=== PATIENT | female | born 1955 | race Caucasian/White ===

== ENCOUNTER 2020-04-02 21:19 | Inpatient (IN) | payer OTHER ==
[2020-04-02] MEDS ORDERED: NA CHLORIDE 0.9% 3,000 ML ONE (22:03)
[2020-04-02 22:14] LABS: Absolute Lymphocytes (CBC) 1.3 K/uL (0.7-4.9); Basophils % 0.3 % (0-1.3); Hematocrit 43.5 % (36.0-45.0); Lymphocytes % 7.6 % (15.3-44.8); MPV 11.1 fL (7.6-11.3); RBC Red Blood Cell Count 4.65 M/uL (3.86-4.86)
[2020-04-02 22:22] LABS: Protime INR 1.13
[2020-04-02 22:51] LABS: Blood Morphology Comment NOT SEEN (NOT SEEN); Platelet Estimate ADEQ
[2020-04-02] MEDS ORDERED: ACETAMINOPHEN 500 MG TAB ONE (22:57)
[2020-04-02 23:23] LABS: ALT/SGPT 31 U/L (12-78); AST/SGOT 24 U/L (15-37); Albumin 3.9 g/dL (3.4-5.0); Alkaline Phosphatase 72 U/L (45-117); BUN Blood Urea Nitrogen 16 mg/dL (7-18); Bicarbonate 25 mmol/L (21-32); Bilirubin Direct 0.2 mg/dL (0-0.2); Bilirubin Total 0.6 mg/dL (0.2-1.0); CKMB Creatine Kinase MB < 1.0 ng/mL (0.3-3.6); Creatine Phosphokinase 169 U/L (26-192); Glucose Level 152 mg/dL (74-106); Lipase 151 U/L (73-393); Potassium 4.4 mmol/L (3.5-5.1); Protein, Total 8.2 g/dL (6.4-8.2); Sodium Level 139 mmol/L (136-145); Troponin (Emerg Dept Use Only) < 0.02 ng/mL (0.0-0.045)
[2020-04-02] MEDS ORDERED: ASPIRIN 81 MG CHEWABLE TABLET ONE (23:23)
[2020-04-02] MEDS ORDERED: Levofloxacin500mg IV 500 MG/100 ML BAG IV ONE (23:23)
--- NOTE | 2020-04-02 23:28 | ER ---
Nurse's Notes [facility] Name: Sunni Salazar Age: 64 yrs Sex: Female : 1955 Arrival Date: 04/02/2020 Time: 21:27 Bed 17 Private MD: Diagnosis: Chronic obstructive pulmonary disease with acute lower respiratory infection;Other sepsis;Cellulitis of right lower limb Presentation: 04/02 21:38 Chief complaint: Patient states: "I have been worsening shortness of breath and fever jd3 that started at 1500 this afternoon. I do have COPD, but the fever was what was concerning me.". Coronavirus screen: difficulty breathing, fever, headache, shortness of breath, Client presents with at least one sign or symptom that may indicate coronavirus-19. Standard/surgical mask placed on the client. Provider contacted for isolation considerations. Ebola Screen: Patient negative for fever greater than or equal to 101.5 degrees Fahrenheit, and additional compatible Ebola Virus Disease symptoms. Initial Sepsis Screen: Does the patient meet any 2 criteria? RR > 20 per min. HR > 90 bpm. Yes Does the patient have a suspected source of infection? Yes: Productive cough/pneumonia If YES to both, name of provider notified: Chris WEBSTER Risk Assessment: Do you want to hurt yourself or someone else? Patient reports no desire to harm self or others. Onset of symptoms was April 02, 2020. 21:38 Method Of Arrival: Wheelchair jd3 21:38 Acuity: ANTELMO 2 jd3 Historical: - Allergies: 21:42 No Known Allergies; jd3 - Home Meds: 21:42 Lisinopril Oral [Active]; cholesterol med [Active]; jd3 - PMHx: 21:42 COPD; Hypertension; High Cholesterol; jd3 - PSHx: 21:42 neck; jd3 - Immunization history:: Adult Immunizations up to date. - Social history:: Smoking status: Patient reports the use of cigarette tobacco products, smokes 0.75 packs per day. Screenin:21 Abuse screen: Denies threats or abuse. Denies injuries from another. Nutritional rv screening: No deficits noted. Tuberculosis screening: No symptoms or risk factors identified. Fall Risk None identified. Assessment: 22:18 General: Appears uncomfortable, Behavior is calm, cooperative. Pain: Complains of pain rv in chest. Neuro: Level of Consciousness is awake, alert, obeys commands, Oriented to person, place, time, situation. Cardiovascular: Patient's skin is warm and dry. Rhythm is sinus tachycardia. Respiratory: Respiratory effort is labored, Respiratory pattern is tachypnea Breath sounds with wheezes bilaterally. EENT: No signs and/or symptoms were reported regarding the EENT system. 23:26 Reassessment: pt is A\\T\\O x 3, resp labored, bilateral breath sounds diminished with bb wheezes throughout right lung, notified Chris Page PA new orders received for Bipap respiratory notified. 04/03 01:01 Reassessment: patient feels more comfortable now. heart rate is decreased. still with rv wheezing both lung vences. Neuro: Level of Consciousness is awake, alert, obeys commands, Oriented to person, place, time, situation. Respiratory: Patient placed on BiPAP: FiO2%: 30 Breath sounds with wheezes bilaterally. 01:16 Reassessment: RODNEY, PATIENT'S SON, UPDATED VIA PHONE CALL. LEFT CONTACT NUMBER, [phone]. Vital Signs: 04/02 21:40 BP 167 / 69; Pulse 140; Resp 29 S; Temp 99.0(O); Pulse Ox 92% on R/A; Weight 90.72 kg jd3 (R); Height 5 ft. 5 in. (165.10 cm) (R); Pain 7/10; 22:21 BP 138 / 72; Pulse 112; Resp 26; Pulse Ox 94% on R/A; rv 22:48 BP 114 / 99; Pulse 115; Resp 24; Temp 100.8(O); Pulse Ox 93% on R/A; rv 22:48 Pulse Ox 99% on 2 lpm NC; rv 23:27 BP 116 / 81; Pulse 126; Resp 28; Pulse Ox 97% on 2 lpm NC; bb 23:32 Temp 100.5(O); bb 04/03 00:00 BP 112 / 64; Pulse 108; Resp 24; Pulse Ox 97% on 30% BiPAP; rv 01:05 BP 128 / 77; Pulse 108; Resp 25; Pulse Ox 97% on 30% BiPAP; rv 04/02 21:40 Body Mass Index 33.28 (90.72 kg, 165.10 cm) jd3 ED Course: 04/02 21:27 Patient arrived in ED. bp1 21:37 Chris Ojeda PA is PHCP. cp 21:37 Meño Ibarra MD is Attending Physician. cp 21:40 Triage completed. jd3 21:41 Arm band placed on. jd3 21:47 No provider procedures requiring assistance completed. Initial lab(s) drawn, by me, rv sent to lab. First set of blood cultures drawn by me. 21:56 Edwin Dumont, RN is Primary Nurse. rv 21:57 Inserted saline lock: 18 gauge in left antecubital area, using aseptic technique. Blood rv collected. 22:00 Second set of blood cultures drawn by me. rv 22:22 Patient has correct armband on for positive identification. Placed in gown. Bed in low rv position. Call light in reach. Side rails up X 1. Pulse ox on. NIBP on. 22:44 Chest Single View XRAY In Process Unspecified. EDMS 22:45 US Extremity Venous Unilateral Ltd In Process Unspecified. EDMS 23:26 Rick Stacy is Hospitalizing Provider. cp 04/03 00:21 CT Chest For PE Angio In Process Unspecified. EDMS 01:25 IV is patent, with fluids infusing freely, with good blood return, Patient admitted, IV rv remains in place. Administered Medications: 04/02 22:18 Drug: NS 0.9% (30 ml/kg) 30 ml/kg Route: IV; Rate: bolus; Site: left antecubital; rv 04/03 01:06 Follow up: IV Status: Completed infusion; IV Intake: 2000ml rv 04/02 22:48 Drug: Tylenol 1000 mg Route: PO; rv 04/03 01:05 Follow up: Response: Temperature is decreased rv 04/02 23:22 Drug: LevaQUIN 500 mg Volume: 100 ml; Route: IVPB; Infused Over: 60 mins; Site: left bb antecubital; 04/03 01:06 Follow up: IV Status: Completed infusion rv 04/02 23:22 Drug: Aspirin Chewable Tablet 324 mg Route: PO; bb 04/03 01:06 Follow up: Response: No adverse reaction rv 00:19 Drug: SOLU-Medrol 125 mg Route: IVP; Site: left antecubital; rv 01:06 Follow up: Response: No adverse reaction rv 01:23 Drug: vancoMYCIN 1 grams Route: IVPB; Infused Over: 2 hrs; Site: left antecubital; rv 01:25 Follow up: IV Status: Infusion continued upon admission rv Intake: 01:06 IV: 2000ml; Total: 2000ml. rv Outcome: 04/02 23:28 Decision to Hospitalize by Provider. cp 04/03 01:25 Admitted to ER Hold. Please see [facility] for further documentation. rv Condition: good Instructed on the need for admit. 11:43 Patient left the ED. jl7 Signatures: Dispatcher [employer] EDKalani Boykin RN RN Chris Mcbride PA PA cp Leal, Jahala, RN RN jl7 Levon Woods RN RN jEdwin Ruiz RN RN rv Liana Elliott
--- NOTE | 2020-04-02 23:28 | EDPHYS ---
Physician Documentation [facility] Name: Sunni Salazar Age: 64 yrs Sex: Female : 1955 Arrival Date: 04/02/2020 Time: 21:27 Bed 17 Private MD: ED Physician Meño Ibarra HPI: 04/02 22:15 This 64 yrs old Female presents to ER via Wheelchair with complaints of Fever. cp 22:15 The patient reports fever, that was measured at 104 degrees Fahrenheit. Onset: The cp symptoms/episode began/occurred today. Associated signs and symptoms: Pertinent positives: shortness of breath. Historical: - Allergies: 21:42 No Known Allergies; jd3 - Home Meds: 21:42 Lisinopril Oral [Active]; cholesterol med [Active]; jd3 - PMHx: 21:42 COPD; Hypertension; High Cholesterol; jd3 - PSHx: 21:42 neck; jd3 - Immunization history:: Adult Immunizations up to date. - Social history:: Smoking status: Patient reports the use of cigarette tobacco products, smokes 0.75 packs per day. ROS: 22:20 Constitutional: Positive for fever, Negative for poor PO intake. cp 22:20 Neck: Negative for pain with movement, pain at rest, stiffness. cp 22:20 Cardiovascular: Negative for chest pain. 22:20 Respiratory: Positive for cough, shortness of breath. 22:20 Abdomen/GI: Negative for abdominal pain, vomiting, diarrhea, constipation. 22:20 Neuro: Negative for altered mental status, headache, weakness. 22:20 All other systems are negative. Exam: 22:00 ECG was reviewed by the Attending Physician. cp 22:25 Constitutional: The patient appears in no acute distress, alert, awake, cp non-diaphoretic, well developed, well nourished, obviously ill. 22:25 Head/Face: Normocephalic, atraumatic. cp 22:25 Eyes: Periorbital structures: appear normal, Conjunctiva: normal, no exudate, no injection, Sclera: no appreciated abnormality, Lids and lashes: appear normal, bilaterally. 22:25 ENT: External ear(s): are unremarkable, Nose: is normal, Mouth: is normal, Posterior pharynx: Airway: no evidence of obstruction, patent. 22:25 Neck: ROM/movement: is normal, is supple, no meningismus, no nuchal rigidity. 22:25 Chest/axilla: Inspection: normal, Palpation: is normal, no crepitus, no tenderness. 22:25 Cardiovascular: Rate: tachycardic, Rhythm: regular, JVD: is not appreciated. 22:25 Respiratory: mild respiratory distress is noted, Respirations: labored breathing, that is mild, tachypnea, that is mild, Breath sounds: bronchial sounds, that are mild, are heard diffusely, stridor, is not appreciated. 22:25 Abdomen/GI: Inspection: abdomen appears normal, Palpation: abdomen is soft and non-tender, in all quadrants. 22:25 Musculoskeletal/extremity: Extremities: grossly normal except: noted in the right leg: erythema, swelling, tenderness, Pulses: noted to be 2+ in the right dorsalis pedis artery and left dorsalis pedis artery. 22:25 Neuro: Orientation: to person, place \T\ time. Mentation: is normal. cp Vital Signs: 21:40 BP 167 / 69; Pulse 140; Resp 29 S; Temp 99.0(O); Pulse Ox 92% on R/A; Weight 90.72 kg jd3 (R); Height 5 ft. 5 in. (165.10 cm) (R); Pain 7/10; 22:21 BP 138 / 72; Pulse 112; Resp 26; Pulse Ox 94% on R/A; rv 22:48 BP 114 / 99; Pulse 115; Resp 24; Temp 100.8(O); Pulse Ox 93% on R/A; rv 22:48 Pulse Ox 99% on 2 lpm NC; rv 23:27 BP 116 / 81; Pulse 126; Resp 28; Pulse Ox 97% on 2 lpm NC; bb 23:32 Temp 100.5(O); bb 04/03 00:00 BP 112 / 64; Pulse 108; Resp 24; Pulse Ox 97% on 30% BiPAP; rv 01:05 BP 128 / 77; Pulse 108; Resp 25; Pulse Ox 97% on 30% BiPAP; rv 04/02 21:40 Body Mass Index 33.28 (90.72 kg, 165.10 cm) jd3 MDM: 04/02 21:55 Patient medically screened. cp 22:00 Differential diagnosis: viral Infection, bacterial infection, bronchitis, pneumonia cp UTI, meningitis. 23:20 Test interpretation: by ED physician or midlevel provider: chest xray negative for cp focal pneumonia. 23:30 Data reviewed: vital signs, nurses notes, lab test result(s), EKG, radiologic studies, cp plain films, ultrasound. 23:30 Test interpretation: by ED physician or midlevel provider: ECG, plain radiologic cp studies. Physician consultation: Eugenio GARCIA was contacted at 23:25, regarding admission, to the telemetry unit. patient's condition, and will see patient in ED, shortly. 04/02 21:57 Order name: BMP; Complete Time: 23:41 rv 04/02 21:57 Order name: C-Reactive Protein; Complete Time: 23:41 rv 04/02 21:57 Order name: CBC with Diff; Complete Time: 22:53 rv 04/02 22:53 Interpretation: Normal except: WBC 17.2; PLT 112; GEETA% 86.9; LYM% 7.6; NEUT A 15.0. 04/02 21:57 Order name: D-Dimer; Complete Time: 22:53 rv 04/02 22:55 Interpretation: Abnormal: D-DIMER 1262. 04/02 21:57 Order name: Ferritin; Complete Time: 23:41 rv 04/02 21:57 Order name: Flu; Complete Time: 22:53 rv 04/02 21:57 Order name: Lactate; Complete Time: 22:53 rv 04/02 21:57 Order name: LFT's; Complete Time: 23:41 rv 04/02 21:57 Order name: Lipase; Complete Time: 23:41 rv 04/02 21:57 Order name: Procalcitonin; Complete Time: 23:41 rv 04/02 21:57 Order name: PT-INR; Complete Time: 22:53 rv 04/02 21:57 Order name: Ptt, Activated; Complete Time: 22:53 rv 04/02 21:57 Order name: Strep rv 04/02 21:57 Order name: Troponin (emerg Dept Use Only); Complete Time: 23:41 rv 04/02 21:57 Order name: Urine Microscopic Only 04/02 21:57 Order name: Urine Culture 04/02 21:57 Order name: D-Dimer 04/02 21:57 Order name: Basic Metabolic Panel 04/02 21:57 Order name: Blood Culture Adult (2) cp 04/02 21:57 Order name: Ckmb; Complete Time: 23:41 cp 04/02 21:57 Order name: CPK; Complete Time: 23:41 04/02 21:57 Order name: EKG; Complete Time: 21:58 rv 04/02 21:57 Order name: Cardiac monitoring; Complete Time: 21:59 rv 04/02 21:57 Order name: Document PUI#; Complete Time: 22:23 rv 04/02 21:57 Order name: Droplet/Contact Precautions; Complete Time: 21:57 rv 04/02 21:57 Order name: EKG - Nurse/Tech; Complete Time: 21:57 rv 04/02 21:57 Order name: IV Start; Complete Time: 21:59 rv 04/02 21:57 Order name: Labs collected and sent; Complete Time: 21:58 rv 04/02 21:57 Order name: Notify Health Dept [id number]/ ; Complete Time: 22:23 04/02 21:57 Order name: O2 Per Protocol; Complete Time: 21:58 rv 04/02 21:57 Order name: O2 Sat Monitoring; Complete Time: 21:58 04/02 21:57 Order name: Chest Single View XRAY cp 04/02 21:57 Order name: Accucheck; Complete Time: 22:18 04/02 21:57 Order name: Cardiac monitoring; Complete Time: 22:18 04/02 21:57 Order name: EKG - Nurse/Tech; Complete Time: 22:18 04/02 21:57 Order name: IV Saline Lock - Large Bore; Complete Time: 22:18 04/02 21:57 Order name: Labs collected and sent; Complete Time: 22:18 cp 04/02 22:13 Order name: US Extremity Venous Unilateral Ltd cp 04/02 22:20 Order name: Manual Differential; Complete Time: 22:53 EDMS 04/02 22:54 Interpretation: Normal except: SEGS 85; BANDS [F] 4; LYM 5. cp 04/02 23:25 Order name: CT Chest For PE Angio cp 04/03 01:17 Order name: SARS-COV-2 RT PCR; Complete Time: 02:02 EDMS 08/22 08:03 Order name: Urine Dipstick--Ancillary (enter results) hi 04/03 09:40 Order name: Urine Dipstick-Ancillary EDME 04/02 21:57 Order name: O2 Per Protocol; Complete Time: 22:18 cp 04/02 21:57 Order name: O2 Sat Monitoring; Complete Time: 22:18 cp EC:00 Rate is 135 beats/min. Rhythm is regular. NM interval is normal. QRS interval is cp normal. QT interval is normal. Interpreted by me. Reviewed by me. Administered Medications: 22:18 Drug: NS 0.9% (30 ml/kg) 30 ml/kg Route: IV; Rate: bolus; Site: left antecubital; rv 04/03 01:06 Follow up: IV Status: Completed infusion; IV Intake: 2000ml rv 04/02 22:48 Drug: Tylenol 1000 mg Route: PO; rv 04/03 01:05 Follow up: Response: Temperature is decreased rv 04/02 23:22 Drug: LevaQUIN 500 mg Volume: 100 ml; Route: IVPB; Infused Over: 60 mins; Site: left antecubital; 04/03 01:06 Follow up: IV Status: Completed infusion rv 04/02 23:22 Drug: Aspirin Chewable Tablet 324 mg Route: PO; 04/03 01:06 Follow up: Response: No adverse reaction rv 00:19 Drug: SOLU-Medrol 125 mg Route: IVP; Site: left antecubital; rv 01:06 Follow up: Response: No adverse reaction rv 01:23 Drug: vancoMYCIN 1 grams Route: IVPB; Infused Over: 2 hrs; Site: left antecubital; rv 01:25 Follow up: IV Status: Infusion continued upon admission rv Disposition: 04/02 23:45 Chart complete. cp Disposition: 04/02/20 23:28 Hospitalization ordered by Rick Stacy for Inpatient Admission. Preliminary diagnosis are Chronic obstructive pulmonary disease with acute lower respiratory infection, Other sepsis, Cellulitis of right lower limb. - Bed requested for Telemetry/MedSurg (Inpatient). - Status is Inpatient Admission. jl7 - Condition is Fair. - Problem is new. - Symptoms have improved. Addendum: 04/07/2020 01:24 Co-signature as Attending Physician, Meño ott h7 Signatures: Dispatcher [employer] EDMS Kalani Smith RN RN bb Eugenio Valle, FUNDRAISING ASSISTANT-C FUNDRAISING ASSISTANT-Cla1 Chris Ojeda PA PA cp Tiffany Bergeron, FRANCIA FELDMAN cg Rhianna Lopez RN RN jl7 [facility] Chuck, FRANCIA Dos Santos RN jd3 Edwin Dumont RN RN rv Meño Ibarra MD MD mh7 Corrections: (The following items were deleted from the chart) 04/02 21:59 21:58 CBC+H.LAB.BRZ ordered. EDMS EDMS 22:00 21:58 LACTATE+C.LAB.BRZ ordered. EDMS EDMS 22:00 21:58 HEPATIC FUNCTION+C.LAB.BRZ ordered. EDMS EDMS 22:00 21:58 LIPASE+C.LAB.BRZ ordered. EDMS EDMS 22:00 21:58 Procalcitonin+C.LAB.BRZ ordered. EDMS EDMS 22:00 21:58 PROTIME (+INR)+COAG.LAB.BRZ ordered. EDMS EDMS 22:00 21:58 PTT, ACTIVATED+COAG.LAB.BRZ ordered. EDMS EDMS 22:00 21:58 TROPONIN (EMERG DEPT USE ONLY)+C.LAB.BRZ ordered. EDMS EDMS 22:00 21:58 UA MICROSCOPIC+U.LAB.BRZ ordered. EDMS EDMS 22:11 21:58 BLOOD CULTURE*+BA.LAB.BRZ ordered. EDME EDMS 22:23 21:57 Urine Dipstick-Ancillary ordered. rv rv 22:46 21:58 Chest Single View+RAD.RAD.BRZ ordered. EDME EDMS 04/03 00:13 04/02 21:58 CORONAVIRUS+MR.LAB.BRZ ordered. EDMS EDMS 04/03 00:35 04/02 23:28 Hospitalization Ordered by Rick Stacy for Inpatient Admission. cp Preliminary diagnosis is Chronic obstructive pulmonary disease with acute lower respiratory infection; Other sepsis. Bed requested for Telemetry/MedSurg (Inpatient). Status is Inpatient Admission. Condition is Fair. Problem is new. Symptoms have improved. cp 04/03 01:03 00:35 04/02/2020 23:28 Hospitalization Ordered by Rick Stacy for Inpatient cg Admission. Preliminary diagnosis is Chronic obstructive pulmonary disease with acute lower respiratory infection; Other sepsis; Cellulitis of right lower limb. Bed requested for Telemetry/MedSurg (Inpatient). Status is Inpatient Admission. Condition is Fair. Problem is new. Symptoms have improved. cp 10:34 01:03 04/02/2020 23:28 Hospitalization Ordered by Rick Stacy for Inpatient mt Admission. Preliminary diagnosis is Chronic obstructive pulmonary disease with acute lower respiratory infection; Other sepsis; Cellulitis of right lower limb. Bed requested for [facility] ER HOLD. Status is Inpatient Admission. Condition is Fair. Problem is new. Symptoms have improved. cg 11:43 10:34 04/02/2020 23:28 Hospitalization Ordered by Rick Stacy for Inpatient jl7 Admission. Preliminary diagnosis is Chronic obstructive pulmonary disease with acute lower respiratory infection; Other sepsis; Cellulitis of right lower limb. Bed requested for Telemetry/MedSurg (Inpatient). Status is Inpatient Admission. Condition is Fair. Problem is new. Symptoms have improved. mt
[2020-04-02 23:38] LABS: Ferritin 74.5 ng/mL (8-388)
[2020-04-03] MEDS ORDERED: METHYLPREDNISOLONE 125 MG INJ ONE (00:26)
[2020-04-03] MEDS ORDERED: VANCOMYCIN 1 GM/VIAL ONE ×2 (01:19→05:08)
[2020-04-03] MEDS ORDERED: NA CHLORIDE 0.9% 250 ML ONE ×2 (01:20→05:07)
--- NOTE | 2020-04-03 01:22 | P.HP ---
Certification for Inpatient Patient admitted to: Inpatient With expected LOS: >2 Midnights Patient will require the following post-hospital care: None Practitioner: I am a practitioner with admitting privileges, knowledge of patient current condition, hospital course, and medical plan of care. Services: Services provided to patient in accordance with Admission requirements found in Title 42 Section 412.3 of the Code of Federal Regulations Patient History Date of Service: 04/03/20 Reason for admission: Cellulitis, COPD exacerbation History of Present Illness: 64-year-old female with history of COPD, hypertension presents emergency department for shortness of breath and right lower extremity discomfort. Patient reports that she had increasing shortness of breath since yesterday morning. Patient also reports noticing that her right leg was painful and red earlier today. Patient was evaluated in the emergency department and found to have elevated white blood cell count, tachycardia, fever. Patient was also in mild to moderate respiratory distress and placed on BiPAP. Patient did improve with BiPAP and is saturating well at this point time. ED provider wishes to admit patient for further evaluation and management. Patient did have CT PE protocol based on elevated D-dimer level the emergency department. CT did not show any findings of pneumonia or pulmonary embolism. When I saw the patient in the emergency department she was awake, alert, oriented x4. Patient was on BiPAP at the time evaluation. Patient did have s ome expiratory wheezing. Moderate cellulitis of the right lower extremity noted. Patient be admitted for further evaluation and management. - Past Medical/Surgical History -: COPD -: Hypertension -: Cervical neck surgery Psychosocial/ Personal History: Patient lives at home with her family - Family History Family History: Reviewed- Non-Contributory - Social History Smoking Status: Current every day smoker Counseled patient to stop smoking for: less than 10 minutes Smoking therapy provided: Yes CD- Drugs: No Caffeine use: No Place of Residence: Home Review of Systems Respiratory: Cough, Shortness of Breath Musculoskeletal: Leg Pain Integumentary: Rash Physical Examination - Physical Exam General: Alert, In no apparent distress, Oriented x3 HEENT: Atraumatic, Normocephalic, PERRLA, Mucous membr. moist/pink Neck: Supple Respiratory: Expiratory wheezes Cardiovascular: Regular rate/rhythm, Normal S1 S2, No gallops Capillary refill: <2 Seconds Gastrointestinal: Normal bowel sounds, Soft and benign Musculoskeletal: Swelling, Erythema, Tenderness (Right lower extremity) Integumentary: Tenderness/swelling (Right lower extremity), Erythema, Warmth Neurological: Normal speech, Normal tone - Studies Laboratory Data (last 24 hrs) 04/02/20 21:47: PT 13.3 H, INR 1.13, APTT 21.3 L 04/02/20 21:47: WBC 17.2 H, Hgb 14.9, Hct 43.5, Plt Count 112 L 04/02/20 21:47: Sodium 139, Potassium 4.4, BUN 16, Creatinine 1.15, Glucose 152 H, Total Bilirubin 0.6, AST 24, ALT 31, Alkaline Phosphatase 72, Lipase 151 Microbiology Data (last 24 hrs): 04/02/20 21:50 Nasopharnyx Influenza Type A Antigen Screen - Final 04/02/20 21:50 Nasopharnyx Influenza Type B Antigen Screen - Final Assessment and Plan - Plan Assessment Cellulitis of the right lower extremity Acute respiratory failure with hypoxia secondary to COPD exacerbation Hypertension Plan Cellulitis of the right lower extremity: Patient had ultrasound of the right lower extremity in the emergency department which was negative for acute DVT. Continue with antibiotic therapy including vancomycin and Levaquin. DVT prophylaxis Lovenox 40 mg subcutaneous once daily. Anticipate clinical improvement next 48-72 hr. Acute respiratory failure with hypoxia secondary to COPD exacerbation: Continue with steroids and inhalers at this time. Oxygen as needed, room air saturations daily. Patient currently on BiPAP will continue this as needed. Also continue Levaquin. Hypertension: Obtain and continue patient's home medications. Discharge Plan: Home Plan to discharge in: 72 Hours - Advance Directives Does patient have a Living Will: No Does patient have a Durable POA for Healthcare: No - Code Status/Comfort Care Code Status Assessed: Yes (Patient is full code) Critical Care: No Time Spent Managing Pts Care (In Minutes): 55
[2020-04-03 01:55] VITALS: BMI 36.3
[2020-04-03] MEDS ORDERED: HYDROCODONE/APAP 5/325 MG TAB PO PRN (01:55)
[2020-04-03] MEDS ORDERED: ALBUTEROL INHALER 60 PUFF/8 GM IH PRN (01:55)
[2020-04-03] MEDS ORDERED: ACETAMINOPHEN 500 MG TAB PO PRN (01:55)
[2020-04-03] MEDS ORDERED: ONDANSETRON 4 MG/2 ML VIAL IV PRN (01:55)
[2020-04-03] MEDS ORDERED: Levofloxacin500mg IV 500 MG/100 ML BAG IV SCH (02:00)
[2020-04-03] MEDS ORDERED: VANCOMYCIN/NS 1 gm 1 GM/250 ML BAG IVPB SCH (04:30)
[2020-04-03] MEDS ORDERED: ENOXAPARIN 40 MG/0.4 ML SQ ONE (08:41)
[2020-04-03] MEDS ORDERED: METHYLPREDNISOLONE 40 MG INJ ONE (08:41)
[2020-04-03] MEDS: ENOXAPARIN 40 MG/0.4 ML SQ SCH (09:00)
[2020-04-03] MEDS: METHYLPREDNISOLONE 40 MG INJ IV SCH ×2 (09:00→17:03)
[2020-04-03] MEDS ORDERED: DULERA 100/5 (MOMETASONE/FORMOTEROL) INHALER IH SCH (09:00)
[2020-04-03 09:40] LABS: Urine Blood 1+ (NEG); Urine Glucose NEGATIVE (NEG); Urine Protein NEGATIVE (NEG)
--- NOTE | 2020-04-03 10:15 | RAD REPORT ---
EXAM DESCRIPTION: USExtremmalinda Venous Uni Ltd04/02/2020 10:44 pm CLINICAL HISTORY: Right leg swelling. COMPARISON: None. FINDINGS: Right common femoral, superficial femoral, popliteal and right posterior tibial veins are compressible and demonstrate augmentation. Doppler demonstrates good flow. IMPRESSION: No evidence of deep venous thrombosis involving the right lower extremity.
--- NOTE | 2020-04-03 10:47 | RAD REPORT ---
EXAM DESCRIPTION: Manju Single View04/02/2020 10:43 pm CLINICAL HISTORY: Fever COMPARISON: none FINDINGS: The lungs are hyperaerated. The lungs appear clear of acute infiltrate. The heart is normal size IMPRESSION: No acute abnormalities displayed
--- NOTE | 2020-04-03 11:04 | P.CNS ---
Date of Consult: 04/03/20 Chief Complaint: Cellulitis, COPD exacerbation History of Present Illness: Patient is 64 years of age with a history of COPD hypertension admitted with acute onset of shortness of breath and right lower extremity discomfort [place] with also cellulitis respiratory failure doing better right now history of COPD was on BiPAP Allergies No Known Allergies Allergy (Verified 04/03/20 01:54) - Past Medical/Surgical History -: COPD -: Hypertension -: Cervical neck surgery Psychosocial/ Personal History: Patient lives at home with her family - Social History CD- Drugs: No Caffeine use: No Place of Residence: Home Review of Systems 10-point ROS is otherwise unremarkable Respiratory: Shortness of Breath Physical Examination Temp Pulse Resp BP Pulse Ox 98.4 F 81 19 117/70 93 04/03/20 08:00 04/03/20 08:00 04/03/20 08:00 04/03/20 08:00 04/03/20 08:00 General: Alert, Oriented x3 Respiratory: Expiratory wheezes Cardiovascular: No edema, Normal S1 S2 Laboratory Data (last 24 hrs) 04/02/20 21:47: PT 13.3 H, INR 1.13, APTT 21.3 L 04/02/20 21:47: WBC 17.2 H, Hgb 14.9, Hct 43.5, Plt Count 112 L 04/02/20 21:47: Sodium 139, Potassium 4.4, BUN 16, Creatinine 1.15, Glucose 152 H, Total Bilirubin 0.6, AST 24, ALT 31, Alkaline Phosphatase 72, Lipase 151 - Problems (1) COPD (chronic obstructive pulmonary disease) Current Visit: Yes Status: Acute Plan: Patient is 64 years of age admitted with the worsening dyspnea presume COPD exacerbation CT angiogram does not show an evidence of pulmonary embolism chronic COPD changes no evidence of DVT white count elevated paste of a cellulitis in the right leg cultures are pending continue with IV levofloxacin white count is mildly elevated possible discharge tomorrow patient will need bronchodilators low-dose steroids follow with me as an outpatient continue with levofloxacin for cellulitis vital signs satisfactory Qualifiers: COPD type: COPD with acute exacerbation Qualified Code(s): J44.1 - Chronic obstructive pulmonary disease with (acute) exacerbation
[2020-04-03] MEDS ORDERED: VANCOMYCIN 1.5 GM in NA CHLORIDE 0.9% 500 ML IVPB SCH (12:00)
--- NOTE | 2020-04-03 12:15 | P.PN ---
Date of Service: 04/03/20 Patient seen and examined. She has been transitioned from BiPAP to 2 L of oxygen by nasal cannula with good oxygen saturation. Patient reports feeling much better. Lung Auscultation: No rhonchi or wheezes or crackles. Breathing is nonlabored. She was not hypoxic with ambulation on room air but developed some tachycardia and reported dyspnea on exertion. Diagnosis: COPD exacerbation. Acute respiratory failure with hypoxia. Arthritis of right ankle. Noted leukocytosis I doubt cellulitis. COVID 19 negative. Continue bronchodilators and steroids. Oxygen p.r.n. Monitor for 1 more day as inpatient. Check uric acid level to assess for gouty arthritis. Monitor CBC. Empiric antibiotic Possible discharge tomorrow.
[2020-04-03] MEDS: IPRATROPIUM BROM 0.5MG/2.5ML IH SCH ×2 (13:43→20:15)
--- NOTE | 2020-04-03 13:55 | RAD REPORT ---
EXAM DESCRIPTION: CT - Chest For Pe Angio - 04/03/2020 5:08 am CLINICAL HISTORY: The patient is 64 years old and is Female; SOB TECHNIQUE: Axial computed tomographic angiography images of the chest with intravenous contrast. T his CT exam was performed using one or more of the following dose reduction techniques: automated e xposure control, adjustment of the mA and/or kV according to patient size, and/or use of iterative re construction technique. MIP reconstructed images were created and reviewed. Oblique reformatted images were created and reviewed. DLP: 474 mGy*cm COMPARISON: Chest radiograph of the same day. FINDINGS: PULMONARY ARTERIES: Unremarkable. No pulmonary embolism. AORTA: Atherosclerotic calcifications. No thoracic aortic aneurysm. LUNGS: Advanced apical predominant emphysematous changes. Scattered interlobular septal thickening , likely scarring. Mild right lung base atelectasis. No focal consolidation. PLEURAL SPACE: Unremarkable. No significant effusion. No pneumothorax. HEART: Unremarkable. No cardiomegaly. No significant pericardial effusion. No evidence of RV dysfunction. THYROID: The visualized thyroid is normal. BONES/JOINTS: Cervicothoracic post surgical changes. Diffuse osteopenia. No acute fracture. No dislocation. SOFT TISSUES: Unremarkable. LYMPH NODES: Unremarkable. No enlarged lymph nodes. LIVER: Mild hepatic cirrhosis. GALLBLADDER AND BILE DUCTS: Cholelithiasis without CT evidence of acute cholecystitis. IMPRESSION: 1. No pulmonary embolism. 2. Moderate to advanced chronic lung changes. No focal consolidation. 3. Cholelithiasis without CT evidence of acute cholecystitis. 4. Mild hepatic cirrhosis. Electronically signed by: Luis Villalpando DO 04/03/2020 12:30 AM CDT Due to temporary technical issues with the PACS/Fluency reporting system, reports are being signed by the in house radiologist without review as a courtesy to ensure prompt reporting. The interpreting r adiologist is fully responsible for the content of the report.
[2020-04-03] MEDS ORDERED: HYDROCODONE/APAP 7.5/325 MG TAB PO PRN (20:20)
[2020-04-03] MEDS ORDERED: PREGABALIN 50 MG CAP PO SCH (21:00)
[2020-04-03] MEDS: PREGABALIN 50 MG CAP PO SCH (22:40)
[2020-04-03] MEDS: Levofloxacin500mg IV 500 MG/100 ML BAG IV SCH (22:41)
[2020-04-04] MEDS: METHYLPREDNISOLONE 40 MG INJ IV SCH ×3 (00:51→16:04)
[2020-04-04] MEDS: IPRATROPIUM BROM 0.5MG/2.5ML IH SCH ×4 (01:15→19:42)
[2020-04-04 04:30] LABS: Absolute Lymphocytes (CBC) 1.4 K/uL (0.7-4.9); Basophils % 0.1 % (0-1.3); Lymphocytes % 8.8 % (15.3-44.8); MPV 11.2 fL (7.6-11.3); RBC Red Blood Cell Count 4.12 M/uL (3.86-4.86)
[2020-04-04 04:39] LABS: Magnesium 2.1 mg/dL (1.8-2.4); Potassium 4.4 mmol/L (3.5-5.1)
[2020-04-04] MEDS ORDERED: VANCOMYCIN 1.5 GM in NA CHLORIDE 0.9% 500 ML IVPB SCH (05:00)
[2020-04-04] MEDS: PREGABALIN 50 MG CAP PO SCH ×3 (08:16→20:11)
[2020-04-04] MEDS: ENOXAPARIN 40 MG/0.4 ML SQ SCH (08:21)
--- NOTE | 2020-04-04 12:45 | P.PN ---
Subjective Date of Service: 04/04/20 Chief Complaint: Cellulitis, COPD exacerbation Patient states she feels much better today. States her breathing is better. States her right ankle pain has also improved. Physical Examination - Vital Signs Temperature: 97.3 F Blood Pressure: 126/65 Pulse: 93 Respirations: 18 Pulse Ox (%): 93 - Physical Exam General: Alert, In no apparent distress, Oriented x3 HEENT: Mucous membr. moist/pink Neck: Supple Respiratory: Normal air movement, Expiratory wheezes (Mild bilateral wheezes) Cardiovascular: No edema, Regular rate/rhythm, Normal S1 S2 Gastrointestinal: Normal bowel sounds, Soft and benign, No tenderness Musculoskeletal: No swelling, No erythema Integumentary: No rashes, No erythema Neurological: Other (Nonfocal) Assessment And Plan - Current Problems (Diagnosis) (1) COPD exacerbation Current Visit: Yes Status: Acute (2) Acute respiratory failure with hypoxia Current Visit: Yes Status: Acute (3) Osteoarthritis Current Visit: Yes Status: Acute (4) Sepsis Current Visit: Yes Status: Acute (5) Cholelithiasis Current Visit: Yes Status: Acute - Plan Leukocytosis is trending down. Respiratory condition has improved. Continue IV antibiotics, IV steroid and bronchodilators. COVID 19 is negative. Assess for home oxygen qualification. Cholelithiasis management as outpatient.
[2020-04-04] MEDS: Levofloxacin500mg IV 500 MG/100 ML BAG IV SCH (22:03)
[2020-04-05] MEDS: METHYLPREDNISOLONE 40 MG INJ IV SCH ×3 (01:04→15:56)
[2020-04-05] MEDS: IPRATROPIUM BROM 0.5MG/2.5ML IH SCH ×4 (02:35→20:05)
[2020-04-05 06:25] LABS: Absolute Lymphocytes (CBC) 1.3 K/uL (0.7-4.9); Basophils % 0.1 % (0-1.3); Hematocrit 38.8 % (36.0-45.0); Lymphocytes % 11.7 % (15.3-44.8); MPV 11.6 fL (7.6-11.3)
[2020-04-05 06:46] LABS: Magnesium 2.4 mg/dL (1.8-2.4); Potassium 4.8 mmol/L (3.5-5.1)
[2020-04-05] MEDS: PREGABALIN 50 MG CAP PO SCH ×3 (08:33→21:03)
[2020-04-05] MEDS: ENOXAPARIN 40 MG/0.4 ML SQ SCH (08:33)
[2020-04-05] MEDS: BENZONATATE 100 MG CAP PO PRN (21:03)
[2020-04-06] MEDS: METHYLPREDNISOLONE 40 MG INJ IV SCH ×2 (00:44→08:20)
[2020-04-06] MEDS: Levofloxacin500mg IV 500 MG/100 ML BAG IV SCH (00:44)
[2020-04-06] MEDS: IPRATROPIUM BROM 0.5MG/2.5ML IH SCH ×3 (01:30→14:10)
--- NOTE | 2020-04-06 05:23 | P.PN ---
Subjective Date of Service: 04/05/20 Subjective: No new changes, No C/O voiced, Improving Review of Systems 10-point ROS is otherwise unremarkable Physical Examination - Vital Signs Temperature: 96.8 F Blood Pressure: 160/75 Pulse: 70 Respirations: 16 Pulse Ox (%): 93 - Physical Exam General: Alert, In no apparent distress, Oriented x3 Respiratory: Diminished, Expiratory wheezes Cardiovascular: Regular rate/rhythm, Normal S1 S2, No murmurs Gastrointestinal: Normal bowel sounds, Soft and benign, Non-distended, No tenderness Musculoskeletal: No clubbing, No swelling, No tenderness Neurological: Normal strength at 5/5 x4 extr, Sensation intact, Cranial nerves 3-12 intact - Studies Medications List Reviewed: Yes Assessment & Plan - Problems (Diagnosis) (1) Acute respiratory failure with hypoxia Current Visit: Yes Status: Acute (2) COPD exacerbation Current Visit: Yes Status: Acute - Plan AWAITING HOME OXYGEN ARRANGEMENT AND NEBULIZER MACHINE. ONCE THIS IS COMPLETED PATIENT SHOULD BE ABLE TO GO HOME. Discharge Plan: Home Plan to discharge in: 24 Hours - Advance Directives Does patient have a Living Will: No Does patient have a Durable POA for Healthcare: No - Code Status/Comfort Care Code Status Assessed: Yes Code Status: Full Code Critical Care: No Time Spent Managing PTS Care (In Minutes): 30
[2020-04-06 06:11] LABS: Absolute Lymphocytes (CBC) 1.3 K/uL (0.7-4.9); Basophils % 0.1 % (0-1.3); Lymphocytes % 15.5 % (15.3-44.8); MPV 10.8 fL (7.6-11.3); RBC Red Blood Cell Count 4.46 M/uL (3.86-4.86)
[2020-04-06 06:17] LABS: Magnesium 2.4 mg/dL (1.8-2.4); Potassium 4.3 mmol/L (3.5-5.1)
[2020-04-06] MEDS: PREGABALIN 50 MG CAP PO SCH ×2 (08:20→13:32)
[2020-04-06] MEDS: ENOXAPARIN 40 MG/0.4 ML SQ SCH (08:20)
[2020-04-06] MEDS: BENZONATATE 100 MG CAP PO PRN (08:23)
[2020-04-06 09:38] VITALS: TEMP 97.6
[2020-04-06 09:46] VITALS: O2SAT 91
[2020-04-06] MEDS ORDERED: AMLODIPINE 5 MG TAB PO ONE (13:58)
[2020-04-06 14:27] VITALS: BP 170/90
[2020-04-06] MEDS ORDERED: predniSONE 20 MG TAB PO SCH (21:00)
[2020-04-07] MEDS ORDERED: LOSARTAN POTASSIUM 50 MG TABLET PO ONE (13:59)
== END 2020-04-06 15:35 | disposition home or self-care (01) | DRG 871 ==
LOC: ER 21:19 → ERHOLD 04-03 01:07 → 2ND 04-03 11:27
PROVIDERS: ADMIT Internal Medicine; ATTEND Hospitalist
PROC: 5A09457 Assistance with Respiratory Ventilation, 24-96 Consecutive Hours, Continuous Positive Airway Pressure (ICD-10-PCS; principal; 2020-04-03)
DX: A41.9 Sepsis, unspecified organism (principal); J96.01 Acute respiratory failure with hypoxia; J44.1 Chronic obstructive pulmonary disease with (acute) exacerbation; I10 Essential (primary) hypertension; F17.200 Nicotine dependence, unspecified, uncomplicated; K80.20 Calculus of gallbladder without cholecystitis without obstruction; M19.071 Primary osteoarthritis, right ankle and foot; R00.0 Tachycardia, unspecified; Z79.899 Other long term (current) drug therapy; Z20.828 Contact with and (suspected) exposure to other viral communicable diseases
CPT/HCPCS: 36415; 71045; 71275; 80048; 80076; 80202; 81003; 82550; 82553; 82728; 83605; 83690; 83735; 84145; 84484; 84550; 85025; 85379; 85610; 85730; 86140; 87040; 87070; 87081; 87086; 87088; 87804; 93005; 93971; 94640; 94660; 96365; 96366; 96375; 99285; J1650; J2920; J2930; J3370; J7030; J7040; J7050; J7606; Q9967; U0003

== ENCOUNTER 2022-02-05 13:05 | Emergency (ER) | payer OTHER ==
--- OUTSIDE RECORDS SUMMARY | 2022-02-05 13:08 | XMS REPORT | Continuity of Care Document ---
:1955 Author Organization [facility] t Address [address] [place] [address] Care Team Providers Name Role Phone Susan Durand Attending Clinician Unavailable Juvencio Attending Clinician Unavailable Flower Attending Clinician Unavailable Problems This patient has no known problems. Allergies, Adverse Reactions, Alerts This patient has no known allergies or adverse reactions. Medications Ordered Filled Start Stop Current Ordering Indication Dosage Frequency Signature Comments Components Source Medication Medication Date Date Medication? Clinician (SIG) Name Name Rosuvastati Rosuvastati Yes Marixa 1 tablet Common n Calcium n Calcium 3-20 Millender in evening Spirit 00:00: - [facility] 00 [facility] Lisinopril Lisinopril Yes Marixa 1 tablet Common Millender [facility] Anoro Anoro Yes Marixa 1 puff Common Ellipta Ellipta Millender [facility] Lasix Lasix Yes Marixa 1 tablet Common Millender as needed Spiri t for leg - [facility] swelling [facility] Lyrica Lyrica Yes Marixa 1 capsule Commo n Millender [facility] Ventolin Ventolin Yes Marixa 2 puffs as Common HFA HFA Millender needed [facility] HydrOXYzine HydrOXYzine Yes Marixa 1 tablet Common HCl HCl Millender as needed Spiri t for - [facility] anxiety [facility] Procedures This patient has no known procedures. Encounters Start End Encounter Admission Attending Care Care Encounter Source Date/Time Date/Time Type Type Clinicians Facility Department ID 2021-11-21 Outpatient Durand, Na STLMLC STLMLC [id number] Common 11:32:01 [id number] [facility] 2021-09-07 Outpatient Durand, Na STLMLC STLMLC [id number] Common 13:56:16 [id number] [facility] 2021-09-07 Outpatient Durand, Na STLMLC STLMLC [id number] Common 13:47:43 [id number] [facility] 2021-09-07 Outpatient Durand, Na STLMLC STLMLC [id number] Common 12:52:13 [id number] [facility] 2021-09-07 Outpatient Durand, Na STLMLC STLMLC [id number] Common 12:50:33 [id number] [facility] 2021-09-07 Outpatient Durand, Na STLMLC STLMLC [id number] Common 12:50:09 [id number] [facility] 2021-09-07 Outpatient Durand, Na STLMLC STLMLC [id number] Common 12:31:17 [id number] [facility] 2021-09-07 Outpatient Durand, Na STLMLC STLMLC [id number] Common 12:16:41 [id number] [facility] 2021-09-07 Outpatient STLMLC STLMLC [id number] Common 12:08:45 [id number] [facility] 2021-09-07 Outpatient Millender, STLMLC STLMLC [id number] Common 11:48:12 Marixa [id number] [facility] 2021-09-07 Outpatient Millender, STLMLC STLMLC [id number] Common 11:09:35 Marixa [id number] [facility] 2021-09-07 Outpatient Coleman, STLMLC STLMLC [id number] Common 11:07:33 Lorene 13025 [facility] 2022-01-06 2022-01-06 ambulatory STLMLC STLMLC [id number] Common 00:00:00 00:00:00 [facility] 2021-12-27 2021-12-27 ambulatory STLMLC STLMLC [id number] Common 00:00:00 00:00:00 [facility] 2021-11-17 2021-11-17 ambulatory STLMLC STLMLC [id number] Common 00:00:00 00:00:00 [facility] 2021-10-18 2021-10-18 ambulatory STLMLC STLMLC [id number] Common 00:00:00 00:00:00 [facility] 2021-09-26 2021-09-26 ambulatory STLMLC STLMLC [id number] Common 00:00:00 00:00:00 [facility] 2021-07-28 2021-07-28 ambulatory STLMLC STLMLC [id number] Common 00:00:00 00:00:00 [facility] 2021-06-08 2021-06-08 Outpatient STLMLC STLMLC [id number] Common 00:00:00 00:00:00 [facility] 2021-04-22 2021-04-22 Outpatient STLMLC STLMLC [id number] Common 00:00:00 00:00:00 [facility] 2021-03-21 2021-03-21 Outpatient STLMLC STLMLC [id number] Common 00:00:00 00:00:00 [facility] 2021-02-18 2021-02-18 Outpatient STLMLC STLMLC [id number] Common 00:00:00 00:00:00 [facility] 2021-01-28 2021-01-28 Outpatient STLMLC STLMLC [id number] Common 00:00:00 00:00:00 [facility] 2020-12-03 2020-12-03 Outpatient STLMLC STLMLC [id number] Common 00:00:00 00:00:00 [facility] 2020-11-22 2020-11-22 Outpatient STLMLC STLMLC [id number] Common 00:00:00 00:00:00 [facility] 2020-10-01 2020-10-01 Outpatient STLMLC STLMLC [id number] Common 00:00:00 00:00:00 [facility] 2020-09-21 2020-09-21 Outpatient STLMLC STLMLC [id number] Common 00:00:00 00:00:00 [facility] 2020-09-08 2020-09-08 Outpatient STLMLC STLMLC [id number] Common 00:00:00 00:00:00 [facility] 2020-08-10 2020-08-10 Outpatient STLMLC STLMLC [id number] Common 00:00:00 00:00:00 [facility] 2020-08-10 2020-08-10 Outpatient STLMLC STLMLC [id number] Common 00:00:00 00:00:00 [facility] 2020-07-12 2020-07-12 Outpatient STLMLC STLMLC [id number] Common 00:00:00 00:00:00 [facility] 2020-05-31 2020-05-31 Outpatient STLMLC STLMLC [id number] Common 00:00:00 00:00:00 [facility] 2020-05-17 2020-05-17 Outpatient STLMLC STLMLC [id number] Common 00:00:00 00:00:00 [facility] 2020-05-09 2020-05-09 Outpatient STLMLC STLMLC [id number] Common 00:00:00 00:00:00 [facility] 2020-05-06 2020-05-06 Outpatient STLMLC STLMLC [id number] Common 00:00:00 00:00:00 [facility] 2020-04-09 2020-04-09 [facility] [id number] Common 09:49:00 09:49:[address] [facility] [address] [facility] 2020-02-06 2020-02-06 [facility] [id number] Common 15:20:00 15:20:[address] [facility] [address] [facility] [address] [facility] 2019-12-19 2019-12-19 [facility] [id number] Common 13:34:00 13:34:[address] [facility] 2019-11-18 2019-11-18 [facility] [id number] Common 09:00:00 09:00:[address] [facility] 2019-10-31 2019-10-31 [facility] [id number] Common 10:18:00 10:18:[address] [facility] 2019-10-31 2019-10-31 [facility] [id number] Common 09:37:00 09:37:[address] [facility] 2019-10-08 2019-10-08 [facility] [id number] Common 11:00:00 11:00:[address] [facility] 2019-09-29 2019-09-29 [facility] [id number] Common 16:24:00 16:24:[address] [facility] 2019-08-28 2019-08-28 [facility] [id number] Common 09:52:00 09:52:[address] [facility] 2019-07-17 2019-07-17 [facility] [id number] Common 08:40:00 08:40:[address] [facility] 2019-07-15 2019-07-15 [facility] [id number] Common 09:08:00 09:08:[address] [facility] 2019-06-30 2019-06-30 [facility] [id number] Common 08:00:00 08:00:[address] [facility] 2019-05-14 2019-05-14 [facility] [id number] Common 11:00:00 11:00:[address] [facility] Results This patient has no known results.
[2022-02-05] MEDS ORDERED: IBUPROFEN 400 MG TAB ONE (14:04)
[2022-02-05] MEDS ORDERED: HYDROCODONE/APAP 5/325 MG TAB ONE (14:04)
--- NOTE | 2022-02-05 15:09 | RAD REPORT ---
EXAM DESCRIPTION: RAD - Knee Left 3 View - 02/05/2022 2:48 pm CLINICAL HISTORY: PAIN COMPARISON: No comparisons FINDINGS: No fracture, dislocation or periosteal reaction.No joint effusion seen. No joint space mela rowing. Degenerative meniscal calcifications are present. No significant soft tissue finding. IMPRESSION: Degenerative meniscal changes are present. No acute bone or joint finding seen. Clinical concerns for internal derangement or occult bony injury could be further assessed with MR im aging.
--- NOTE | 2022-02-05 15:24 | EDPHYS ---
Physician Documentation [facility] Name: Sunni Salazar Age: 66 yrs Sex: Female : 1955 Arrival Date: 02/05/2022 Time: 13:08 Bed 9 Private MD: ED Physician Raghu Estevez HPI: 02/05 14:00 This 66 yrs old Female presents to ER via Wheelchair with complaints of Knee Pain. cp 14:00 The patient presents with an injury, pain, that is acute. The complaints affect the cp left knee. 14:00 Onset: The symptoms/episode began/occurred yesterday. cp 14:00 Patient reports pain started as she was attempting to stand after fall backward onto cp buttocks. 14:00 Treatment prior to arrival includes: no previous treatment. cp Historical: - Allergies: 13:45 No Known Allergies; vg1 - Home Meds: 13:45 cholesterol med [Active]; lisinopril Oral [Active]; vg1 - PMHx: 13:45 COPD; High Cholesterol; Hypertension; vg1 - Immunization history:: Client reports having NOT received the Covid vaccine. - Social history:: Smoking status: Patient reports the use of cigarette tobacco products, smokes one-half pack cigarettes per day. ROS: 14:05 MS/extremity: Positive for pain, swelling, tenderness, of the left knee, Negative for cp decreased range of motion, deformity, paresthesias. 14:05 Constitutional: Negative for body aches, chills, fever, poor PO intake. cp 14:05 Cardiovascular: Negative for chest pain. 14:05 Respiratory: Negative for cough, shortness of breath, wheezing. 14:05 Abdomen/GI: Negative for abdominal pain, nausea, vomiting, and diarrhea. 14:05 Skin: Negative for cellulitis, rash. 14:05 All other systems are negative. Exam: 14:10 Constitutional: The patient appears in no acute distress, alert, awake, non-toxic, well cp developed, well nourished, overweight 14:10 Head/Face: Normocephalic, atraumatic. cp 14:10 Neck: ROM/movement: is normal, is supple, without pain, no range of motions limitations. 14:10 Chest/axilla: Inspection: normal. 14:10 Cardiovascular: Rate: tachycardic. 14:10 Respiratory: the patient does not display signs of respiratory distress, Respirations: normal, no use of accessory muscles, no retractions. 14:10 Abdomen/GI: Exam negative for discomfort, distension, guarding, Inspection: abdomen appears normal. 14:10 Back: pain, is absent, ROM is normal. 14:10 Musculoskeletal/extremity: Extremities: grossly normal except: noted in the left knee: pain, swelling, tenderness, general swelling noted anterior knee, medial and lateral knee, ROM: limited passive range of motion due to pain, in the left knee, Perfusion: the extremity is normally perfused throughout, the left leg Sensation intact. Vital Signs: 13:43 BP 125 / 71; Pulse 100; Resp 20; Pulse Ox 93% on R/A; Weight 90.72 kg; Height 5 ft. 5 vg1 in. (165.10 cm); Pain 3/10; 15:32 BP 128 / 82; Pulse 97; Resp 19 S; Pulse Ox 95% on R/A; jd3 13:43 Body Mass Index 33.28 (90.72 kg, 165.10 cm) vg1 MDM: 13:48 Patient medically screened. cp 15:01 Test interpretation: by ED physician or midlevel provider: xrays of left knee negative cp for fracture. 15:23 Data reviewed: vital signs, nurses notes, radiologic studies, plain films. cp 15:23 Differential diagnosis: closed fracture, contusion, tendonitis. Counseling: I had a cp detailed discussion with the patient and/or guardian regarding: the historical points, exam findings, and any diagnostic results supporting the discharge/admit diagnosis, radiology results, the need for outpatient follow up, a orthopedic surgeon, to return to the emergency department if symptoms worsen or persist or if there are any questions or concerns that arise at home. Response to treatment: the patient's symptoms have mildly improved after treatment, and as a result, I will discharge patient. 02/05 13:54 Order name: XRAY Knee LEFT 3 view; Complete Time: 15:14 cp 02/05 15:01 Order name: Mikey wrap-joint; Complete Time: 15:02 cp 02/05 15:17 Order name: Crutches; Complete Time: 15:33 cp Administered Medications: 14:01 Drug: Ibuprofen 800 mg Route: PO; jd3 15:02 Follow up: Response: No adverse reaction jd3 14:01 Drug: HYDROcodone-acetaminophen 5 mg-325 mg 1 tabs Route: PO; jd3 15:02 Follow up: Response: No adverse reaction; RASS: Alert and Calm (0) jd3 Disposition: 18:04 Co-signature as Attending Physician, Raghu Estevez MD. ma2 Disposition Summary: 02/05/22 15:23 Discharge Ordered Location: Home cp Problem: new cp Symptoms: have improved cp Condition: Stable cp Diagnosis - Pain in left knee cp Followup: cp - With: Palomo Martinez MD - When: 2 - 3 days - Reason: Recheck today's complaints Discharge Instructions: - Discharge Summary Sheet cp - Elastic Bandage and RICE Therapy cp - Acute Knee Pain, Adult cp Forms: - Medication Reconciliation Form cp - Thank You Letter cp - Antibiotic Education cp - Prescription Opioid Use cp Prescriptions: - Diclofenac Sodium 75 mg Oral tablet,delayed release (DR/EC) - take 1 tablet by ORAL route 2 times per day; 20 tablet; Refills: 0, Product cp Selection Permitted Signatures: Dispatcher [employer] EDID Chris Ojeda PA PA cp Levon Woods, RN RN jRaguh Jackson MD MD ma2 Maci Bergeron RN RN vg1 Corrections: (The following items were deleted from the chart) 02/06 13:53 02/05 14:00 Patient reports she started having left knee pain yesterday after fall cp backward onto buttocks. Knee pain started when she started to get up to stand, left knee buckled and gave out. Patient reports she is having pain in right knee and scheduled to have surgery by DR Lee. cp 02/06 13:56 02/05 14:10 Musculoskeletal/extremity: Extremities: grossly normal except: noted in the cp left knee: pain, swelling, tenderness, noted anterior lower knee and posterior lateral knee along joint line, ROM: limited passive range of motion due to pain, in the left knee, Perfusion: the extremity is normally perfused throughout, the left leg Sensation intact. cp 02/06 13:57 02/05 14:00 Patient reports pain started as she was attempting to stand after fall cp backward onto buttocks. Patient reports left knee gave out as she was standing. cp 02/06 13:58 02/05 16:00 Splinting: Splint applied to left knee using knee immobilizer, applied by cp nurse. Examined by me, post splint application: neurovascular intact, Patient tolerated well, cp
--- NOTE | 2022-02-05 15:24 | ER ---
Nurse's Notes [facility] Name: Sunni Salazar Age: 66 yrs Sex: Female : 1955 Arrival Date: 02/05/2022 Time: 13:08 Bed 9 Private MD: Diagnosis: Pain in left knee Presentation: 02/05 13:43 Chief complaint: Patient states: yesterday was squatting down and lost balance and fell vg1 back onto buttocks and landed on carpet, while trying to get up felt pain in Left knee. Coronavirus screen: Vaccine status: Patient reports being unvaccinated. Client denies travel out of the [place] in the last 14 days. Ebola Screen: Patient denies exposure to infectious person. Patient denies travel to an Ebola-affected area in the 21 days before illness onset. Initial Sepsis Screen: Does the patient meet any 2 criteria? No. Patient's initial sepsis screen is negative. Does the patient have a suspected source of infection? No. Patient's initial sepsis screen is negative. Risk Assessment: Do you want to hurt yourself or someone else? Patient reports no desire to harm self or others. Onset of symptoms was February 04, 2022. 13:43 Method Of Arrival: Wheelchair vg1 13:43 Acuity: ANTELMO 4 vg1 Triage Assessment: 13:45 General: Appears uncomfortable, Behavior is calm, cooperative. Pain: Complains of pain vg1 in left knee Pain currently is 3 out of 10 on a pain scale. at worst was 8 out of 10 on a pain scale. Historical: - Allergies: 13:45 No Known Allergies; vg1 - Home Meds: 13:45 cholesterol med [Active]; lisinopril Oral [Active]; vg1 - PMHx: 13:45 COPD; High Cholesterol; Hypertension; vg1 - Immunization history:: Client reports having NOT received the Covid vaccine. - Social history:: Smoking status: Patient reports the use of cigarette tobacco products, smokes one-half pack cigarettes per day. Screenin:54 Abuse screen: Denies threats or abuse. Nutritional screening: No deficits noted. jd3 Tuberculosis screening: No symptoms or risk factors identified. Fall Risk No IV (0 pts). Ambulatory Aid- None/Bed Rest/Nurse Assist (0 pts). Mental Status- Oriented to own ability (0 pts). Total Zhao Fall Scale indicates No Risk (0-24 pts). Assessment: 13:53 General: Appears in no apparent distress. comfortable, Behavior is calm, cooperative, jd3 appropriate for age. Pain: Complains of pain in left knee. Neuro: Moeller Agitation-Sedation Scale (RASS): 0 - Alert and Calm Level of Consciousness is awake, alert, obeys commands, Oriented to person, place, time, situation. Cardiovascular: Capillary refill < 3 seconds Patient's skin is warm and dry. Respiratory: Airway is patent Respiratory effort is even, unlabored, Respiratory pattern is regular, symmetrical. GI: No signs and/or symptoms were reported involving the gastrointestinal system. : No signs and/or symptoms were reported regarding the genitourinary system. EENT: No signs and/or symptoms were reported regarding the EENT system. Derm: Skin is intact, Skin is dry, Skin is normal, Skin temperature is warm. Musculoskeletal: Circulation, motion, and sensation intact. Range of motion: limited in left knee. 15:01 Reassessment: Patient appears in no apparent distress at this time. Patient and/or jd3 family updated on plan of care and expected duration. Pain level reassessed. Patient is alert, oriented x 3, equal unlabored respirations, skin warm/dry/pink. awaiting results. Vital Signs: 13:43 BP 125 / 71; Pulse 100; Resp 20; Pulse Ox 93% on R/A; Weight 90.72 kg; Height 5 ft. 5 vg1 in. (165.10 cm); Pain 3/10; 15:32 BP 128 / 82; Pulse 97; Resp 19 S; Pulse Ox 95% on R/A; jd3 13:43 Body Mass Index 33.28 (90.72 kg, 165.10 cm) vg1 ED Course: 13:08 Patient arrived in ED. as 13:21 Chris Ojeda PA is PHCP. cp 13:21 Raghu Estevez MD is Attending Physician. cp 13:45 Triage completed. vg1 13:45 Arm band placed on. vg1 13:53 Levon Woods RN is Primary Nurse. jd3 13:55 Patient has correct armband on for positive identification. Bed in low position. Call jd3 light in reach. Side rails up X 1. Adult w/ patient. Pulse ox on. NIBP on. 14:50 XRAY Knee LEFT 3 view In Process Unspecified. EDMS 15:07 Mikey wrap to left knee. jd3 15:22 Palomo Martinez MD is Referral Physician. cp 15:31 Crutch training done. jd3 15:32 No provider procedures requiring assistance completed. Patient did not have IV access jd3 during this emergency room visit. Administered Medications: 14:01 Drug: Ibuprofen 800 mg Route: PO; jd3 15:02 Follow up: Response: No adverse reaction jd3 14:01 Drug: HYDROcodone-acetaminophen 5 mg-325 mg 1 tabs Route: PO; jd3 15:02 Follow up: Response: No adverse reaction; RASS: Alert and Calm (0) jd3 Medication: 13:54 VIS not applicable for this client. jd3 Outcome: 15:23 Discharge ordered by . cp 15:32 Discharged to home via wheelchair, with crutches, with family. jd3 15:32 Condition: stable 15:32 Discharge instructions given to patient, Instructed on discharge instructions, follow up and referral plans. medication usage, Demonstrated understanding of instructions, follow-up care, medications, Prescriptions given X 1. 15:33 Patient left the ED. jd3 Signatures: Dispatcher [employer] EDMS Cait Hines Corey, ELEANOR PA Levon Kimball, RN RN jd3 Maci Bergeron RN RN vg1
[2022-02-05 15:39] VITALS: BP 128/82; O2SAT 95
== END 2022-02-05 15:33 | disposition home or self-care (01) ==
LOC: ER 13:05
DX: M25.562 Pain in left knee (principal)
CPT/HCPCS: 99284

== ENCOUNTER 2022-02-17 20:24 | Emergency (ER) | payer OTHER ==
[2022-02-17] MEDS ORDERED: LORazepam 2 MG/ML VIAL ONE (21:56)
[2022-02-17] MEDS ORDERED: NA CHLORIDE 0.9% 500 ML ONE (21:57)
--- NOTE | 2022-02-17 22:10 | RAD REPORT ---
EXAM DESCRIPTION: Manju Single View02/17/2022 9:45 pm CLINICAL HISTORY: Shortness of breath COMPARISON: 2019 FINDINGS: The lungs appear clear of acute infiltrate. The heart is normal size IMPRESSION: No acute abnormalities displayed
[2022-02-17 22:11] LABS: Absolute Lymphocytes (CBC) 2.2 K/uL (0.7-4.9); Hematocrit 45.6 % (36.0-45.0); Lymphocytes % 23.4 % (15.3-44.8); MCV 90.9 fL (80-100); RBC Red Blood Cell Count 5.02 M/uL (3.86-4.86)
[2022-02-17 22:16] LABS: Protime INR 0.97
[2022-02-17 22:32] LABS: Albumin 3.7 g/dL (3.4-5.0); Bilirubin Direct 0.1 mg/dL (0-0.2); Bilirubin Total 0.3 mg/dL (0.2-1.0); Potassium 4.2 mmol/L (3.5-5.1); Protein, Total 7.8 g/dL (6.4-8.2); Troponin High Sensitivity 4.2 pg/mL (<58.9)
[2022-02-17 23:27] LABS: Urine Blood Negative (Negative); Urine Glucose Negative (Negative); Urine Protein Negative (Negative); Urine Specific Gravity >=1.030 (1.005-1.030); Urine pH 5.5 (5.0-7.0)
--- NOTE | 2022-02-18 00:01 | EDPHYS ---
Physician Documentation [facility] Name: Sunni Salazar Age: 66 yrs Sex: Female : 1955 Arrival Date: 02/17/2022 Time: 20:51 Bed 25 Private MD: ED Physician Chris Heard HPI: 02/17 21:32 This 66 yrs old Female presents to ER via Ambulatory with complaints of kristal Anxiety. 21:32 The patient has shortness of breath at rest, with light activity. Onset: The kristal symptoms/episode began/occurred 3 day(s) ago. Duration: The symptoms are intermittent. The patient's shortness of breath is aggravated by stress,not specific. The patient presents to the emergency department with anxiety, over unknown circumstances. Past psychiatric history: Prior diagnosis: anxiety. Associated signs and symptoms: The patient has no apparent associated signs or symptoms. Severity of symptoms: At their worst the symptoms were mild moderate in the emergency department the symptoms are unchanged. Associated signs and symptoms: The patient has no apparent associated signs or symptoms. Historical: - Allergies: 21:06 No Known Allergies; tw5 - PMHx: 21:06 COPD; High Cholesterol; Hypertension; tw5 - Immunization history:: Flu vaccine is not up to date. - Social history:: Smoking status: Patient reports the use of cigarette tobacco products, smokes one-half pack cigarettes per day. - Family history:: not pertinent. ROS: 21:32 Constitutional: Negative for fever, chills, and weight loss, Eyes: Negative for injury, kristal pain, redness, and discharge, ENT: Negative for injury, pain, and discharge, Neck: Negative for injury, pain, and swelling, Cardiovascular: Negative for chest pain, palpitations, and edema, Abdomen/GI: Negative for abdominal pain, nausea, vomiting, diarrhea, and constipation, Back: Negative for injury and pain, : Negative for injury, bleeding, discharge, and swelling, MS/Extremity: Negative for injury and deformity, Skin: Negative for injury, rash, and discoloration, Neuro: Negative for headache, weakness, numbness, tingling, and seizure, Allergy/Immunology: Negative for hives, rash, and allergies, Endocrine: Negative for neck swelling, polydipsia, polyuria, polyphagia, and marked weight changes, Hematologic/Lymphatic: Negative for swollen nodes, abnormal bleeding, and unusual bruising. 21:32 Respiratory: Positive for shortness of breath. 21:32 Neuro: Positive for 21:32 Psych: Positive for anxiety. Exam: 21:32 Constitutional: This is a well developed, well nourished patient who is awake, alert, kristal and in no acute distress. Head/Face: Normocephalic, atraumatic. Eyes: Pupils equal round and reactive to light, extra-ocular motions intact. Lids and lashes normal. Conjunctiva and sclera are non-icteric and not injected. Cornea within normal limits. Periorbital areas with no swelling, redness, or edema. ENT: Nares patent. No nasal discharge, no septal abnormalities noted. Tympanic membranes are normal and external auditory canals are clear. Oropharynx with no redness, swelling, or masses, exudates, or evidence of obstruction, uvula midline. Mucous membranes moist. Neck: Trachea midline, no thyromegaly or masses palpated, and no cervical lymphadenopathy. Supple, full range of motion without nuchal rigidity, or vertebral point tenderness. No Meningismus. Chest/axilla: Normal chest wall appearance and motion. Nontender with no deformity. No lesions are appreciated. Cardiovascular: Regular rate and rhythm with a normal S1 and S2. No gallops, murmurs, or rubs. Normal PMI, no JVD. No pulse deficits. Respiratory: Lungs have equal breath sounds bilaterally, clear to auscultation and percussion. No rales, rhonchi or wheezes noted. No increased work of breathing, no retractions or nasal flaring. Abdomen/GI: Soft, non-tender, with normal bowel sounds. No distension or tympany. No guarding or rebound. No evidence of tenderness throughout. Back: No spinal tenderness. No costovertebral tenderness. Full range of motion. Skin: Warm, dry with normal turgor. Normal color with no rashes, no lesions, and no evidence of cellulitis. MS/ Extremity: Pulses equal, no cyanosis. Neurovascular intact. Full, normal range of motion. Neuro: Awake and alert, GCS 15, oriented to person, place, time, and situation. Cranial nerves II-XII grossly intact. Motor strength 5/5 in all extremities. Sensory grossly intact. Cerebellar exam normal. Normal gait. Psych: Awake, alert, with orientation to person, place and time. Behavior, mood, and affect are within normal limits. 21:32 Musculoskeletal/extremity: DVT Exam: No signs of deep vein thrombosis. no pain, no swelling, no tenderness, negative Homans' sign noted on exam, no appreciated bluish discoloration, no erythema, no increased warmth. 22:03 ECG was reviewed by the Attending Physician. [facility] Vital Signs: 21:03 BP 145 / 89; Pulse 109; Resp 20; Temp 98.6(O); Pulse Ox 89% on R/A; Weight 90.72 kg; tw5 Height 5 ft. 5 in. (165.10 cm); Pain 0/10; 21:12 BP 161 / 85; Pulse 88; Resp 18; Pulse Ox 95% on R/A; bh1 22:03 BP 157 / 99; Pulse 110; Resp 18; Pulse Ox 94% on R/A; bh1 23:26 BP 150 / 81; Pulse 111; Resp 22; Pulse Ox 95% on R/A; bh1 23:53 BP 130 / 72; Pulse 90; Resp 20; Pulse Ox 94% on R/A; bh1 21:03 Body Mass Index 33.28 (90.72 kg, 165.10 cm) tw5 21:03 "My oxygen is usually 91% at home." tw5 MDM: 21:10 Patient medically screened. [facility] 21:35 Antibiotic administration: Not indicated. Differential diagnosis: Anxiety Reaction kristal pneumonia. The patient's Wells Deep Vein Thrombosis Score was calculated as follows: Total Score: 0-2 Pts- Low Risk. The patient's pulmonary embolism risk score was calculated as follows: Total Score: 0-2 points. This patient was found to be at low risk for a pulmonary embolism by using the Well's assessment criteria. Immunization status: Pneumococcal vaccine: Influenza vaccine: Data reviewed: vital signs, nurses notes, lab test result(s), EKG, radiologic studies, plain films. Data interpreted: monitoring and evaluation advisor: rate is 88 beats/min, rhythm is regular, Pulse oximetry: on room air is 95 %. Test interpretation: by ED physician or midlevel provider: ECG, plain radiologic studies. Counseling: I had a detailed discussion with the patient and/or guardian regarding: the historical points, exam findings, and any diagnostic results supporting the discharge/admit diagnosis, lab results, radiology results. 02/17 21:31 Order name: Basic Metabolic Panel; Complete Time: 23:05 [facility] 02/17 21:31 Order name: CBC with Diff; Complete Time: 22:19 [facility] 02/17 21:31 Order name: D-Dimer; Complete Time: 22:19 [facility] 02/17 21:31 Order name: LFT's; Complete Time: 23:05 [facility] 02/17 21:31 Order name: Magnesium; Complete Time: 23:05 [facility] 02/17 21:31 Order name: NT PRO-BNP; Complete Time: 23:05 [facility] 02/17 21:31 Order name: PT-INR; Complete Time: 22:19 [facility] 02/17 21:31 Order name: Troponin HS; Complete Time: 23:05 [facility] 02/17 21:31 Order name: XRAY Chest (1 view); Complete Time: 22:19 [facility] 02/17 22:19 Order name: US Extremity Venous W Compression Joseph [facility] 02/17 22:19 Order name: CT Chest For PE Angio [facility] 02/17 23:27 Order name: Urine Dipstick-Ancillary; Complete Time: 23:46 [facility] 02/17 21:31 Order name: EKG; Complete Time: 21:32 [facility] 02/17 21:31 Order name: Cardiac monitoring; Complete Time: 21:55 [facility] 02/17 21:31 Order name: EKG - Nurse/Tech; Complete Time: 21:55 [facility] 02/17 21:31 Order name: IV Saline Lock; Complete Time: 21:55 [facility] 02/17 21:31 Order name: Labs collected and sent; Complete Time: 22:05 [facility] 02/17 21:31 Order name: O2 Per Protocol; Complete Time: 21:36 [facility] 02/17 21:31 Order name: O2 Sat Monitoring; Complete Time: 21:36 [facility] 02/17 21:31 Order name: Urine Dipstick-Ancillary (obtain specimen); Complete Time: 23:26 kristal EC:03 Rate is 95 beats/min. Rhythm is regular. QRS [place] is Normal. SD interval is normal. QRS kristal interval is normal. QT interval is normal. No Q waves. T waves are Normal. No ST changes noted. Clinical impression: NSR w/ Non-specific ST/T Changes and No evidence of ischemia. Interpreted by me. Reviewed by me. Administered Medications: 22:03 Drug: NS 0.9% 500 ml Route: IV; Rate: bolus; Site: left antecubital; [facility] 23:17 Follow up: IV Status: Completed infusion; IV Intake: 500ml [facility] 22:03 Drug: Ativan (LORazepam) 1 mg Route: IVP; Site: left antecubital; [facility] 23:17 Follow up: Response: No adverse reaction [facility] 02/18 00:08 Drug: KLONopin (clonazePAM) 1 mg Route: PO; bb 00:14 Follow up: Response: Medication administered at discharge. bb Disposition Summary: 02/18/22 00:00 Discharge Ordered Location: Home kristal Problem: new kristal Symptoms: have improved kristal Condition: Stable kristal Diagnosis - Anxiety disorder, unspecified kristal Followup: kristal - With: Private Physician - When: 2 - 3 days - Reason: Recheck today's complaints, Continuance of care, Re-evaluation by your physician Followup: kristal - With: - When: 2 - 3 days - Reason: Recheck today's complaints, Continuance of care, Re-evaluation by your physician Discharge Instructions: - Discharge Summary Sheet kristal - Aspirin and Your Heart kristal - Generalized Anxiety Disorder, Adult kristal - Supporting Someone With Anxiety kristal Forms: - Medication Reconciliation Form kristal - Thank You Letter kristal - Antibiotic Education kristal - Prescription Opioid Use [facility] Prescriptions: - Klonopin 1 mg Oral Tablet - take 1 tablet by ORAL route every 12 hours As needed; 20 tablet; Refills: 0, [facility] Product Selection Permitted - Hydroxyzine HCl 25 mg Oral Tablet - take 1 tablet by ORAL route every 6 hours As needed; 30 tablet; Refills: 0, [facility] Product Selection Permitted Signatures: Dispatcher [employer] Chris Nunez MD MD cha Ballard, Brenda, RN RN bb Eugenio Valle, LINK WIRE FABRIC MACHINE TENDER-C LINK WIRE FABRIC MACHINE TENDER-Alyx1 Pao Churchill tw5 Ayanna Loera RN RN [facility]
--- NOTE | 2022-02-18 00:01 | ER ---
Nurse's Notes [facility] Name: Sunni Salazar Age: 66 yrs Sex: Female : 1955 Arrival Date: 02/17/2022 Time: 20:51 Bed 25 Private MD: Diagnosis: Anxiety disorder, unspecified Presentation: 02/17 21:03 Chief complaint: Patient states: "I think I am having an anxiety attack. If I have air tw5 blowing on my face I am okay. I have COPD, but this feels different. I feel like my heart is going 90 mph.". Coronavirus screen: Vaccine status: Patient reports being unvaccinated. Ebola Screen: Patient negative for fever greater than or equal to 101.5 degrees Fahrenheit, and additional compatible Ebola Virus Disease symptoms Patient denies exposure to infectious person. Patient denies travel to an Ebola-affected area in the 21 days before illness onset. Initial Sepsis Screen: Does the patient meet any 2 criteria? HR > 90 bpm. Does the patient have a suspected source of infection? No. Patient's initial sepsis screen is negative. Risk Assessment: Do you want to hurt yourself or someone else? Patient reports no desire to harm self or others. Onset of symptoms is unknown. 21:03 Method Of Arrival: Ambulatory tw5 21:03 Acuity: ANTELMO 2 tw5 Triage Assessment: 21:06 General: Appears in no apparent distress. Behavior is calm, cooperative, appropriate tw5 for age. Pain: Denies pain. Historical: - Allergies: 21:06 No Known Allergies; tw5 - PMHx: 21:06 COPD; High Cholesterol; Hypertension; tw5 - Immunization history:: Flu vaccine is not up to date. - Social history:: Smoking status: Patient reports the use of cigarette tobacco products, smokes one-half pack cigarettes per day. - Family history:: not pertinent. Screenin:12 Abuse screen: Denies threats or abuse. Nutritional screening: No deficits noted. bh1 Tuberculosis screening: No symptoms or risk factors identified. Fall Risk None identified. Assessment: 21:12 Reassessment: No changes from previously documented assessment. General: Appears bh1 uncomfortable. General: Appears. 02/18 00:15 Reassessment: Patient is alert, oriented x 3, equal unlabored respirations, skin bb warm/dry/pink. pt verbalized understanding of and agrees to plan of care discharge instructions given pt ambulated with steady gait to exit accompanied by family. Vital Signs: 02/17 21:03 BP 145 / 89; Pulse 109; Resp 20; Temp 98.6(O); Pulse Ox 89% on R/A; Weight 90.72 kg; tw5 Height 5 ft. 5 in. (165.10 cm); Pain 0/10; 21:12 BP 161 / 85; Pulse 88; Resp 18; Pulse Ox 95% on R/A; bh1 22:03 BP 157 / 99; Pulse 110; Resp 18; Pulse Ox 94% on R/A; bh1 23:26 BP 150 / 81; Pulse 111; Resp 22; Pulse Ox 95% on R/A; bh1 23:53 BP 130 / 72; Pulse 90; Resp 20; Pulse Ox 94% on R/A; bh1 21:03 Body Mass Index 33.28 (90.72 kg, 165.10 cm) tw5 21:03 "My oxygen is usually 91% at home." tw5 ED Course: 20:51 Patient arrived in ED. bp1 21:06 Triage completed. tw5 21:07 Arm band placed on right wrist. tw5 21:09 Ayanna Loera, RN is Primary Nurse. bh1 21:10 Chris Heard MD is Attending Physician. kristal 21:12 No apparent distress. Resting quietly. Awaiting ED provider evaluation. bh1 21:12 Patient has correct armband on for positive identification. Bed in low position. Call [facility] light in reach. Adult w/ patient. Pulse ox on. NIBP on. 21:12 No provider procedures requiring assistance completed. bh1 21:48 XRAY Chest (1 view) In Process Unspecified. EDMS 22:03 Resting quietly. Appears restless. Awaiting lab results, Awaiting radiology results. bh1 22:04 Inserted saline lock: 20 gauge in left antecubital area, using aseptic technique. Blood [facility] collected. 22:04 Basic Metabolic Panel Sent. bh1 22:04 CBC with Diff Sent. bh1 22:04 D-Dimer Sent. bh1 22:04 LFT's Sent. bh1 22:04 Magnesium Sent. bh1 22:04 NT PRO-BNP Sent. bh1 22:04 PT-INR Sent. bh1 22:04 Troponin HS Sent. [facility] 22:18 Notified ED physician of a critical lab result(s). D-Dimer 940 Dr Heard notified. bb 23:[address] via stretcher. 1 23:21 CT Chest For PE Angio In Process Unspecified. EDMS 23:26 No apparent distress. Resting quietly. Awaiting lab results, Awaiting radiology results.1 23:38 US Extremity Venous W Compression Joseph In Process Unspecified. EDMS 23:53 Report given to ERIC FELDMAN. 1 23:54 No apparent distress. Resting quietly. Awaiting lab results, Awaiting radiology [facility] 02/18 00:00 Germain Dennis MD is Referral Physician. [facility] 00:14 IV discontinued, intact, bleeding controlled, No redness/swelling at site. Pressure bb dressing applied. Administered Medications: 02/17 22:03 Drug: NS 0.9% 500 ml Route: IV; Rate: bolus; Site: left [facility]cubital; [facility] 23:17 Follow up: IV Status: Completed infusion; IV Intake: 500ml [facility] 22:03 Drug: Ativan (LORazepam) 1 mg Route: IVP; Site: left antecubital; [facility] 23:17 Follow up: Response: No adverse reaction [facility] 02/18 00:08 Drug: KLONopin (clonazePAM) 1 mg Route: PO; bb 00:14 Follow up: Response: Medication administered at discharge. bb Medication: 02/17 21:12 VIS not applicable for this client. [facility] Intake: 23:17 IV: 500ml; Total: 500ml. [facility] Outcome: 02/18 00:00 Discharge ordered by . kristal 00:15 Discharged to home ambulatory, with family. bb 00:15 Condition: stable 00:15 Discharge instructions given to patient, Instructed on discharge instructions, follow up and referral plans. medication usage, Demonstrated understanding of instructions, follow-up care, medications, Prescriptions given X 2. 00:16 Patient left the ED. bb Signatures: Dispatcher [employer] Chris Nunez MD MD cha Ballard, Brenda, RN RN bb Liana Elliott Tiffany tw5 Ayanna Loera RN RN [facility]
[2022-02-18] MEDS ORDERED: clonazePAM 1 MG TAB ONE (00:13)
[2022-02-18 01:15] VITALS: TEMP 98.6
[2022-02-18 01:22] VITALS: BP 130/72; O2SAT 94
--- NOTE | 2022-02-18 12:36 | RAD REPORT ---
EXAM DESCRIPTION: CT - Chest For Pe Angio - 02/18/2022 6:27 am CLINICAL HISTORY: 66 years Female CP TECHNIQUE: Contiguous axial images obtained through the chest were obtained from the thoracic inlet to the level of the upper abdomen during the pulmonary arterial phase of intravenous contrast adminis tration. Coronal and sagittal reformatted and multiplanar MIP images provided. This CT exam was performed according to our departmental dose-optimization program, which includes on e or more of the following dose reduction techniques: automated exposure control, adjustment of the m A and/or kV according to patient size, and/or use of iterative reconstruction technique. COMPARISON: 04/02/2020. FINDINGS: Although no central pulmonary embolus is identified, small peripheral pulmonary emboli are not excluded on this examination, which is limited by patient motion Mild atherosclerosis without thoracic aortic aneurysm or dissection. The heart is normal in size with out pericardial effusion. No lymphadenopathy in the chest. There is moderate diffuse centrilobular emphysema again noted, particularly in the upper lobes. No fo ching airspace infiltrate, pleural effusion, or pneumothorax. The central airways are patent. Again seen is likely cirrhosis of the liver and gallstones without evidence of acute cholecystitis. No acute osseous abnormality. IMPRESSION: No central pulmonary embolus. Cannot exclude small peripher al emboli due to patient motion. COPD. Cirrhotic liver. Electronically signed by: Skye Miller MD 02/17/2022 11:57 PM CDT Due to temporary technical issues with the PACS/Fluency reporting system, reports are being signed by the in house radiologists without review as a courtesy to insure prompt reporting. The interpreting radiologist is fully responsible for the content of the report.
--- NOTE | 2022-02-18 12:39 | RAD REPORT ---
EXAM DESCRIPTION: US - Extrem Venous W Compress Joseph - 02/17/2022 11:36 pm CLINICAL HISTORY: 66 years Female PAIN COMPARISON: None TECHNIQUE: Spectral analysis and color/grayscale sonographic images of both legs were obtained utili zing a high-frequency linear array transducer supplemented with color Doppler, compression and augmen tation techniques. FINDINGS: Right leg veins: Common femoral: normal Greater saphenous: normal Superficial femoral: normal Popliteal: normal Calf Veins: normal Left leg veins: Common femoral: normal Greater saphenous: normal Superficial femoral: normal Popliteal: normal Calf Veins: normal IMPRESSION: 1. No sonographic evidence for lower extremity deep venous thrombosis in either leg. Electronically signed by: Yaneth Neil MD 02/18/2022 12:04 AM CDT Due to temporary technical issues with the PACS/Fluency reporting system, reports are being signed by the in house radiologists without review as a courtesy to insure prompt reporting. The interpreting radiologist is fully responsible for the content of the report.
--- NOTE | 2022-02-20 13:53 | EKG ---
Test Date: 2022-02-17 Test Time: 21:49:54 [employer] Machine Operator: KAIDEN MEASUREMENT RESULTS: Intervals: Rate: 95 AK: 178 QRSD: 72 QT: 344 QTc: 432 [place]: P: 71 AK: 178 QRS: 25 T: 30 INTERPRETIVE STATEMENTS: Normal sinus rhythm Low voltage QRS Borderline ECG Compared to ECG 04/02/2020 21:49:35 Low QRS voltage now present Sinus tachycardia no longer present Electronically Signed On 02-20-22 13:48:06 CDT by Jim Reese
== END 2022-02-18 00:16 | disposition home or self-care (01) ==
LOC: ER 20:24
DX: F41.9 Anxiety disorder, unspecified (principal); I10 Essential (primary) hypertension; J44.9 Chronic obstructive pulmonary disease, unspecified; F17.210 Nicotine dependence, cigarettes, uncomplicated
CPT/HCPCS: 93005; 85025; 80048; 36415; 83735; 85610; 85379; 80076; 81003; 84484; 83880; 71275; 71045; 93970; Q9967; J7040; 96361; 96374; 99284